=== PATIENT | male | born 1985 | race African-American/Black ===

== ENCOUNTER 2017-10-05 12:08 | Emergency (ER) | payer OTHER ==
[~2017-10-05] VITALS: Ht 175.3 cm; Wt 82.1 kg
[~2017-10-05 12:08] MED LIST: ANTIBIOTIC PO; NOHOMEMEDS; PAIN MEDICINE PO
[2017-10-05 12:43] VITALS: BP 137/86
[2017-10-05] MEDS ORDERED: NAPROSYN500 MG PO (14:21)
[2017-10-05] MEDS ORDERED: VALIUM5 MG PO (14:21)
== END 2017-10-05 14:25 | disposition home or self-care (01) ==
LOC: EME 12:08
DX: S39.92XA Unspecified injury of lower back, initial encounter (principal); V49.40XA Driver injured in collision with unspecified motor vehicles in traffic accident, initial encounter; Y92.410 Unspecified street and highway as the place of occurrence of the external cause
CPT/HCPCS: 72070; 99281; 99283